=== PATIENT | male | born 1975 | race Hispanic/Latino ===

== ENCOUNTER 2021-03-19 13:19 | Inpatient (IN) | payer BC, OTHER ==
[~2021-03-19] VITALS: Ht 175.3 cm; Wt 122.7 kg
[2021-03-19 14:14] LABS: BASOPHILS % (AUTO) 1.9 % (0.0-5.0); EOSINOPHILS % (AUTO) 7.6 % (0.0-8.0); HEMATOCRIT 22.4 % (42-54); LYMPHOCYTES % (AUTO) 24.5 % (21.0-51.0); MEAN CORPUSCULAR HEMOGLOBIN 30.5 pg (27.0-33.0); MEAN CORPUSCULAR HGB CONC 30.4 g/dL (32.0-36.0); MEAN CORPUSCULAR VOLUME 100.4 fL (79-99); MONOCYTES % (AUTO) 9.3 % (3.0-13.0); NEUTROPHILS % (AUTO) 56.5 % (40.0-77.0); PLATELET COUNT (AUTO) 210 K/uL (130-400); RED BLOOD CELL COUNT(AUTO) 2.23 MIL/uL (4.50-6.20); RED CELL DISTRIBUTION WIDTH 14.5 % (11.0-15.5); WHITE BLOOD COUNT (AUTO) 5.1 K/uL (4.8-10.8)
[2021-03-19 14:34] LABS: ALBUMIN 3.1 g/dL (3.5-5.0); BILIRUBIN,TOTAL 0.2 mg/dL (0.2-1.0); CREATININE 6.5 mg/dL (0.5-1.5); POTASSIUM 5.3 mmol/L (3.5-5.1); TOTAL PROTEIN, SERUM 6.7 g/dL (6.0-8.3)
[2021-03-19 16:02] LABS: APPEARANCE,URINE Clear (CLEAR); BILIRUBIN,URINE Negative (NEGATIVE); COLOR,URINE Yellow (YELLOW); GLUCOSE, URINE (UA) Negative (NEGATIVE); KETONES,URINE Negative (NEGATIVE); LEUKOCYTE ESTERASE ,URINE Negative (NEGATIVE); NITRATE,URINE Negative (NEGATIVE); OCCULT BLOOD,URINE Small (NEGATIVE); PH,URINE 5.5 (5.0-8.0); PROTEIN,URINE 300 mg/dL (NEGATIVE); UROBILINOGEN,URINE 0.2 mg/dL (0.2-1.0)
[2021-03-19 16:12] LABS: BACTERIA,URINE Few /HPF (None Seen); RBC,URINE 0-1 /HPF (0-1); WBC,URINE 0-1 /HPF (0-1)
[2021-03-19 16:14] LABS: SQUAMOUS EPITHELIAL CELL,UR Few /HPF (0-2)
[2021-03-19 16:57] LABS: CREATININE,URINE RANDOM 66 mg/dL (30-135); SODIUM,URINE RANDOM 104 mmol/l (40-220)
[2021-03-19] MEDS: SODIUM BICARBONATE 650 MG TAB PO SCH (17:00)
[2021-03-19 17:10] LABS: % IRON SATURATION 44.5 % (30-44)
[2021-03-19 17:13] LABS: AMPHET/METH SCREEN,URINE NEGATIVE (NEGATIVE); BARBITURATE SCREEN, URINE NEGATIVE (NEGATIVE); BENZODIAZEPINES SCREEN,URINE NEGATIVE (NEGATIVE); CANNABINOID SCREEN,URINE NEGATIVE (NEGATIVE); COCAINE SCREEN,URINE NEGATIVE (NEGATIVE); OPIATE SCREEN,URINE NEGATIVE (NEGATIVE); PHENCYCLIDINE SCREEN,URINE NEGATIVE (NEGATIVE)
[2021-03-19 17:16] LABS: HEMOGLOBIN A1C 4.8 % (4.0-6.0)
[2021-03-19] MEDS ORDERED: KAYEXALATE 15GM/60ML ONE (18:05)
[2021-03-19] MEDS ORDERED: 0.9%NACL 1000ML 1,000 ML IV ONE (18:05)
[2021-03-19] MEDS ORDERED: KAYEXALATE 15GM/60ML PO ONE (19:00)
[2021-03-19 19:20] VITALS: BP 164/81
[2021-03-19] MEDS ORDERED: LISI20TA24 PO (21:44)
[2021-03-19] MEDS ORDERED: METO50TA18 PO (21:44)
[2021-03-19 22:29] VITALS: BP 151/86
[2021-03-19 23:20] VITALS: BP 183/95
[2021-03-19 23:30] VITALS: BP 161/82
[2021-03-20] VITALS (7 sets, daily range): BP systolic 156–183; BP diastolic 68–84
[2021-03-20 05:51] LABS: HEMATOCRIT 23.2 % (42-54); MEAN CORPUSCULAR HEMOGLOBIN 30.2 pg (27.0-33.0); MEAN CORPUSCULAR HGB CONC 31.5 g/dL (32.0-36.0); MEAN CORPUSCULAR VOLUME 95.9 fL (79-99); RED BLOOD CELL COUNT(AUTO) 2.42 MIL/uL (4.50-6.20); WHITE BLOOD COUNT (AUTO) 5.4 K/uL (4.8-10.8)
[2021-03-20 07:08] LABS: CREATININE 6.5 mg/dL (0.5-1.5)
[2021-03-20 08:00] LABS: POTASSIUM 5.1 mmol/L (3.5-5.1)
[2021-03-20] MEDS: METOPROLOL TARTRATE 50 MG TAB PO SCH ×2 (09:41→19:49)
[2021-03-20] MEDS: AMLODIPINE 5 MG TAB PO SCH (09:41)
[2021-03-20] MEDS: SODIUM BICARBONATE 650 MG TAB PO SCH ×2 (09:41→17:43)
[2021-03-20] MEDS ORDERED: EPOETIN ALFA-EPBX (ESRD) 10,000 UNIT/ML VIAL SQ SCH (12:00)
[2021-03-21 03:44] VITALS: BP 152/79
[2021-03-21 04:40] LABS: BASOPHILS % (AUTO) 1.8 % (0.0-5.0); EOSINOPHILS % (AUTO) 8.4 % (0.0-8.0); LYMPHOCYTES % (AUTO) 30.7 % (21.0-51.0); MEAN CORPUSCULAR HEMOGLOBIN 30.7 pg (27.0-33.0); MEAN CORPUSCULAR HGB CONC 32.6 g/dL (32.0-36.0); MEAN CORPUSCULAR VOLUME 94.3 fL (79-99); MONOCYTES % (AUTO) 9.4 % (3.0-13.0); NEUTROPHILS % (AUTO) 49.5 % (40.0-77.0); PLATELET COUNT (AUTO) 196 K/uL (130-400); RED BLOOD CELL COUNT(AUTO) 2.44 MIL/uL (4.50-6.20); RED CELL DISTRIBUTION WIDTH 14.9 % (11.0-15.5); WHITE BLOOD COUNT (AUTO) 5.1 K/uL (4.8-10.8)
[2021-03-21 05:15] LABS: CARBON DIOXIDE 15 mmol/L (21-32); CHLORIDE 111 mmol/L (101-111); CREATINE KINASE, TOTAL 104 U/L (21-232); CREATININE 6.1 mg/dL (0.5-1.5); GLOMERULAR FILTR. RATE CALC 11 mL/min (>60); GLUCOSE,RANDOM 79 mg/dL (70-105); MYOGLOBIN 224 ng/mL (10-92); PHOSPHORUS 6.8 mg/dL (2.5-4.9); POTASSIUM 4.6 mmol/L (3.5-5.1); SODIUM SERUM 140 mmol/L (136-145); TROPONIN I < 0.04 ng/mL (0.00-0.06); UREA NITROGEN, BLOOD 72 mg/dL (7-18)
[2021-03-21 07:30] VITALS: BP 161/62
[2021-03-21] MEDS ORDERED: SODIUM BICARBONATE 650 MG TAB PO SCH (09:49)
[2021-03-21] MEDS ORDERED: EPOETIN ALFA-EPBX (ESRD) 10,000 UNIT/ML VIAL SQ SCH (10:00)
[2021-03-21] MEDS: SODIUM BICARBONATE 650 MG TAB PO SCH (10:06)
[2021-03-21] MEDS: METOPROLOL TARTRATE 50 MG TAB PO SCH (10:06)
[2021-03-21] MEDS: AMLODIPINE 5 MG TAB PO SCH (10:06)
[2021-03-21 11:00] VITALS: BP 171/75
[2021-03-21 16:00] VITALS: BP 163/87
[2021-03-22 03:17] LABS: HEPATITIS A ANTIBODY IGM Negative (Negative); HEPATITIS B CORE IGM Negative (Negative); HEPATITIS Bs ANTIGEN SCREEN P Negative (Negative)
== END 2021-03-21 17:00 | disposition home or self-care (01) | DRG 812 ==
LOC: EDH 13:19 → UNDOADMIN 13:20 → EDHIP 13:20 → 3CH 21:34
PROVIDERS: ADMIT Internal Medicine; ATTEND Internal Medicine
PROC: 30233N1 Transfusion of Nonautologous Red Blood Cells into Peripheral Vein, Percutaneous Approach (ICD-10-PCS; principal; 2021-03-19)
DX: D53.9 Nutritional anemia, unspecified (principal); N17.9 Acute kidney failure, unspecified; E87.2 Acidosis; Z68.41 Body mass index [BMI] 40.0-44.9, adult; E87.5 Hyperkalemia; E88.09 Other disorders of plasma-protein metabolism, not elsewhere classified; E11.22 Type 2 diabetes mellitus with diabetic chronic kidney disease; I12.9 Hypertensive chronic kidney disease with stage 1 through stage 4 chronic kidney disease, or unspecified chronic kidney disease; N18.9 Chronic kidney disease, unspecified; E66.9 Obesity, unspecified; Z80.0 Family history of malignant neoplasm of digestive organs; Z87.891 Personal history of nicotine dependence; Z89.411 Acquired absence of right great toe; Z98.84 Bariatric surgery status; Z79.899 Other long term (current) drug therapy
CPT/HCPCS: 36415; 71045; 76770; 80048; 80053; 80074; 80305; 81001; 82550; 82570; 82728; 82948; 83036; 83540; 83550; 83874; 83880; 84100; 84156; 84300; 84484; 85025; 85027; 86140; 86160; 86255; 86850; 86900; 86901; 86923; 93005; 93306; 93356; G0378; J7030; P9016

== ENCOUNTER 2021-08-08 07:24 | Day surgery (SDC) | payer BC ==
[2021-08-03 14:04] LABS: POTASSIUM 4.8 mmol/L (3.5-5.1)
[2021-08-03 14:08] LABS: CREATININE 8.3 mg/dL (0.5-1.5)
[2021-08-03 14:27] LABS: BASOPHILS % (AUTO) 2.2 % (0.0-5.0); EOSINOPHILS % (AUTO) 2.7 % (0.0-8.0); HEMATOCRIT 41.8 % (42-54); LYMPHOCYTES % (AUTO) 28.5 % (21.0-51.0); MEAN CORPUSCULAR HEMOGLOBIN 31.6 pg (27.0-33.0); MEAN CORPUSCULAR HGB CONC 31.3 g/dL (32.0-36.0); MEAN CORPUSCULAR VOLUME 100.7 fL (79-99); MONOCYTES % (AUTO) 11.2 % (3.0-13.0); NEUTROPHILS % (AUTO) 55.1 % (40.0-77.0); PLATELET COUNT (AUTO) 244 K/uL (130-400); RED BLOOD CELL COUNT(AUTO) 4.15 MIL/uL (4.50-6.20); RED CELL DISTRIBUTION WIDTH 13.2 % (11.0-15.5); WHITE BLOOD COUNT (AUTO) 5.9 K/uL (4.8-10.8)
[2021-08-03 14:34] LABS: INR 1.05 (0.85-1.15); PROTHROMBIN TIME 11.4 SEC (9.6-11.6)
[2021-08-03 14:36] LABS: PARTIAL THROMBOPLASTIN TIME 35.3 SEC (26.3-35.5)
[2021-08-05 13:23] VITALS: BP 160/89
[~2021-08-08] VITALS: Ht 175.3 cm; Wt 114.1 kg
[2021-08-08] VITALS (20 sets, daily range): BP systolic 120–146; BP diastolic 48–84
[~2021-08-08 07:24] MED LIST: 0.9%NACL 1000ML 1,000 ML IV SCH; CEFAZOLIN SODIUM 1 GM VIAL IVP SCH; FOLI1TAB85 PO; MIDO10TA PO
[2021-08-08] MEDS ORDERED: 0.9% NACL 500ML IV.SOLN 500 ML IV ONE (07:26)
[2021-08-08] MEDS: CEFAZOLIN SODIUM 1 GM VIAL IVP ONE ×2 (07:43→09:00)
[2021-08-08] MEDS ORDERED: MIDAZOLAM HCL 1 MG/ML 2ML VIAL ONE (08:16)
[2021-08-08] MEDS ORDERED: FENTANYL CITRATE PF 50 MCG/1 ML 2ML VIAL ONE (08:16)
[2021-08-08] MEDS ORDERED: PROPOFOL 10 MG/ML 20ML VIAL IV ONE (08:16)
[2021-08-08] MEDS ORDERED: LIDOCAINE PF 100MG/5ML (2%) SYRINGE 5ML ONE (08:16)
[2021-08-08] MEDS ORDERED: GLYCOPYRROLATE 1 MG/5 ML SYRINGE ONE (09:26)
[2021-08-08] MEDS ORDERED: 0.9%NACL 10ML VIAL ONE (09:33)
[2021-08-08] MEDS ORDERED: PHENYLEPHRINE HCL 10 MG/ML 1ML VIAL IV ONE (09:34)
[2021-08-08] MEDS ORDERED: HEPARIN 10,000 UNIT/10ML (1,000 UNIT/ML) VIAL ONE (09:47)
[2021-08-08] MEDS ORDERED: MEPERIDINE-PF 25 MG/ML SYG ONE (10:54)
[2021-08-08] MEDS ORDERED: ACETAMINOPHEN WITH CODEINE 1 TAB TAB ONE (12:27)
== END 2021-08-08 13:00 | disposition home or self-care (01) ==
LOC: DAH 07:24 → SUH 07:24
PROVIDERS: ATTEND Student in an Organized Health Care Education/Training Program
DX: E11.22 Type 2 diabetes mellitus with diabetic chronic kidney disease (principal); Z79.01 Long term (current) use of anticoagulants; N18.6 End stage renal disease; I12.0 Hypertensive chronic kidney disease with stage 5 chronic kidney disease or end stage renal disease; Z20.822 Contact with and (suspected) exposure to COVID-19; E66.9 Obesity, unspecified; Z98.890 Other specified postprocedural states; Z79.899 Other long term (current) drug therapy; Z90.49 Acquired absence of other specified parts of digestive tract; Z98.84 Bariatric surgery status; Z86.16 Personal history of COVID-19; Z99.2 Dependence on renal dialysis; Z82.49 Family history of ischemic heart disease and other diseases of the circulatory system; Z83.3 Family history of diabetes mellitus; Z87.891 Personal history of nicotine dependence; Z68.37 Body mass index [BMI] 37.0-37.9, adult
CPT/HCPCS: 36415 ×2; 36821; 71045; 80048; 82948 ×2; 84132; 85025; 85610; 85730; 87635; 93005; A4215; A4221; A4222; A4223; A4600; A4649; A4663; A4930; A6207; A6260; C1713 ×2; C9803; J0690; J1644 ×2; J2001; J2175; J2250; J2370; J2704; J3010; J3490; J7040

== ENCOUNTER 2021-11-06 13:03 | Emergency (ER) | payer BC ==
[~2021-11-06] VITALS: Ht 175.3 cm; Wt 112.5 kg
[~2021-11-06 13:03] MED LIST changes: -0.9%NACL 1000ML 1,000 ML IV SCH; -CEFAZOLIN SODIUM 1 GM VIAL IVP SCH
[2021-11-06 14:48] LABS: BASOPHILS % (AUTO) 1.3 % (0.0-5.0); EOSINOPHILS % (AUTO) 2.1 % (0.0-8.0); HEMATOCRIT 29.1 % (42-54); LYMPHOCYTES % (AUTO) 16.4 % (21.0-51.0); MEAN CORPUSCULAR HEMOGLOBIN 31.1 pg (27.0-33.0); MEAN CORPUSCULAR HGB CONC 32.6 g/dL (32.0-36.0); MEAN CORPUSCULAR VOLUME 95.4 fL (79-99); MONOCYTES % (AUTO) 9.1 % (3.0-13.0); NEUTROPHILS % (AUTO) 70.6 % (40.0-77.0); PLATELET COUNT (AUTO) 349 K/uL (130-400); RED BLOOD CELL COUNT(AUTO) 3.05 MIL/uL (4.50-6.20); RED CELL DISTRIBUTION WIDTH 12.6 % (11.0-15.5); WHITE BLOOD COUNT (AUTO) 9.8 K/uL (4.8-10.8)
[2021-11-06 14:58] LABS: CREATININE 7.7 mg/dL (0.5-1.5); POTASSIUM 3.6 mmol/L (3.5-5.1)
[2021-11-06 15:00] VITALS: BP 143/51
[2021-11-06 15:02] LABS: ALBUMIN 2.8 g/dL (3.5-5.0); BILIRUBIN,TOTAL 0.3 mg/dL (0.2-1.0); TOTAL PROTEIN, SERUM 7.6 g/dL (6.0-8.3)
== END 2021-11-06 15:39 | disposition home or self-care (01) ==
LOC: EDH 13:03
DX: I83.893 Varicose veins of bilateral lower extremities with other complications (principal); L03.116 Cellulitis of left lower limb; E11.9 Type 2 diabetes mellitus without complications; Z98.890 Other specified postprocedural states
CPT/HCPCS: 36415; 80053; 85025; 93971